=== PATIENT | female | born 1990 | race African-American/Black ===

== ENCOUNTER 2022-12-25 17:00 | Emergency (ER) | payer MEDICAID, OTHER ==
[~2022-12-25] VITALS: Ht 172.7 cm; Wt 50.0 kg
[2022-12-25] MEDS ORDERED: ONDANSETRON HCL 4MG/2ML INJ IV STA (17:46)
[2022-12-25] MEDS ORDERED: KETOROLAC 30MG/ML VIAL IV STA (17:46)
[2022-12-25] MEDS ORDERED: SODIUM CHLORIDE 0.9% 1,000 ML IV ONE (18:00)
[2022-12-25] MEDS ORDERED: LORAZEPAM 2MG/ML CPJ IV ONE (18:00)
[2022-12-25 18:15] LABS: BASOPHILS % 0.4 % (0.0-2.0); EOSINOPHILS % 0.3 % (0.0-5.0); HEMOGLOBIN. 11.7 g/dL (12.0-16.0); LYMPHOCYTES % 10.3 % (20.0-50.0); MEAN CORPUSCULAR HEMOGLOBIN 22.6 pg (28.0-32.0); MEAN CORPUSCULAR VOLUME 71.6 fL (81.0-99.0); MEAN PLATELET VOLUME 8.1 fl (7.4-10.4); MONOCYTES % 9.6 % (2.0-8.0); NEUTROPHILS % 79.4 % (40.0-76.0); PLATELET 335 x1000/uL (130-400); RED BLOOD CELL COUNT 5.17 mill/uL (4.2-5.4)
[2022-12-25 18:17] LABS: CLARITY URINE CLOUDY (CLEAR); COLOR URINE DARK YELLOW (YELLOW); KETONES URINE TRACE (NEGATIVE); LEUKOCYTE ESTERASE URINE 1+ (NEGATIVE); NITRITE URINE NEGATIVE (NEGATIVE); OCCULT BLOOD URINE NEGATIVE (NEGATIVE); PH URINE 6.5 (4.5-8.0); PROTEIN URINE 1+ (NEGATIVE); SPECIFIC GRAVITY URINE 1.041 (1.005-1.030)
[2022-12-25 18:27] LABS: *BARBITURATES SCREEN URINE NEGATIVE (NEGATIVE); *BENZODIAZEPINES SCREEN URINE NEGATIVE (NEGATIVE); *COCAINE SCREEN URINE NEGATIVE (NEGATIVE); METHADONE URINE SCREEN NEGATIVE (NEGATIVE); OPIATES URINE SCREEN NEGATIVE (NEGATIVE)
[2022-12-25 18:29] LABS: CHLORIDE 103 mEq/L (98-107)
[2022-12-25 18:36] LABS: ETHANOL BLOOD < 10 mg/dL; INR 1.2; PROTHROMBIN TIME 12.9 sec (9.6-11.0)
[2022-12-25 18:50] LABS: *AMPHETAMINES SCREEN URINE PRESUMTIVE POSITIVE (NEGATIVE); CANNABINOID URINE SCREEN PRESUMTIVE POSITIVE (NEGATIVE); PHENCYCLIDINE URINE SCREEN PRESUMTIVE POSITIVE (NEGATIVE)
[2022-12-25 18:56] LABS: HCG SCREEN NEGATIVE
[2022-12-25] MEDS ORDERED: IBUP-2029 MT (21:10)
[2022-12-25] MEDS ORDERED: ONDA4TAB50 MT (21:10)
[2022-12-25 21:13] VITALS: BP 132/82
[2022-12-25] MEDS ORDERED: IOHEXOL-300 100 ML BOTTLE ONE (23:12)
[2022-12-26] MEDS ORDERED: METR-167 MT (11:28)
[2022-12-26] MEDS ORDERED: LEVO-65 MT (11:28)
== END 2022-12-25 21:55 | disposition home or self-care (01) ==
LOC: ER 17:00
DX: F41.0 Panic disorder [episodic paroxysmal anxiety] (principal); F19.90 Other psychoactive substance use, unspecified, uncomplicated; R10.9 Unspecified abdominal pain; J45.909 Unspecified asthma, uncomplicated; G89.29 Other chronic pain; Z88.5 Allergy status to narcotic agent; Z88.0 Allergy status to penicillin
CPT/HCPCS: 36415; 74177; 80053; 80305; 80320; 81003; 83605; 83690; 84703; 85025; 85610; 96374; 96375; 99285; J1885; J2060; J2405; J7030; Q9967; G0480

== ENCOUNTER 2022-12-26 01:50 | Emergency (ER) | payer MEDICAID, OTHER ==
[~2022-12-26] VITALS: Ht 172.7 cm; Wt 88.4 kg
[~2022-12-26 01:50] MED LIST: IBUP-2029 MT; ONDA4TAB50 MT
[2022-12-26] MEDS ORDERED: CEFTRIAXONE SODIUM 500 MG/VIAL IM ONE (06:00)
[2022-12-26] MEDS ORDERED: KETOROLAC 60MG/2ML VIAL IM ONE (06:45)
[2022-12-26] MEDS ORDERED: KETOROLAC 60MG/2ML VIAL IM SCH (09:15)
[2022-12-26] MEDS ORDERED: CEFTRIAXONE SODIUM 500 MG/VIAL IM SCH (09:15)
[2022-12-26] MEDS ORDERED: AZITHROMYCIN 250 MG TABLET PO ONE (10:30)
[2022-12-26] MEDS ORDERED: GENTAMICIN SULF 40MG/ML 2ML VIAL IM ONE (10:30)
[2022-12-26] MEDS ORDERED: ONDANSETRON 4MG ODT PO ONE (10:30)
[2022-12-26 10:39] LABS: CLARITY URINE CLEAR (CLEAR); COLOR URINE YELLOW (YELLOW); KETONES URINE TRACE (NEGATIVE); LEUKOCYTE ESTERASE URINE 1+ (NEGATIVE); NITRITE URINE NEGATIVE (NEGATIVE); OCCULT BLOOD URINE NEGATIVE (NEGATIVE); PROTEIN URINE 1+ (NEGATIVE); SPECIFIC GRAVITY URINE 1.063 (1.005-1.030)
[2022-12-26] MEDS ORDERED: LEVO-65 MT (11:28)
[2022-12-26] MEDS ORDERED: METR-167 MT (11:28)
[2022-12-26 12:00] VITALS: BP 133/84
[2022-12-26] MEDS ORDERED: AZITHROMYCIN 500 MG TABLET PO NR (12:00)
[2022-12-29 04:07] LABS: NEISSERIA GONORRHOEAE NAA Positive (Negative)
== END 2022-12-26 12:07 | disposition home or self-care (01) ==
LOC: ER 01:50
DX: N73.9 Female pelvic inflammatory disease, unspecified (principal); J45.909 Unspecified asthma, uncomplicated; Z88.0 Allergy status to penicillin
CPT/HCPCS: 76830; 76856; 81003; 81025; 87086; 87491; 87591; 96372; 99285; J1580; J1885; Q0162; Z7610